=== PATIENT | female | born 1960 | race Caucasian/White ===

== ENCOUNTER 2023-09-16 11:27 | Emergency (ER) | payer MEDICARE, MEDICAID ==
[~2023-09-16] VITALS: Ht 152.4 cm; Wt 63.0 kg
[~2023-09-16 11:27] MED LIST: ALBU8HFA PO; ONDA4TAB12 PO
[2023-09-16 12:29] LABS: BASOPHILS % (AUTO) 0.5 % (0-1); EOSINOPHILS % (AUTO) 0 % (0-6); HEMATOCRIT 43.9 % (35.0-45.0); HEMOGLOBIN 14.5 g/dl (12.0-16.0); LYMPHOCYTES # (AUTO) 1.2 X10'3 (1.1-4.8); LYMPHOCYTES % (AUTO) 23.5 % (21-51); MEAN CORPUSCULAR HEMOGLOBIN 31.5 PG (27.0-31.0); MEAN CORPUSCULAR VOLUME 95.7 FL (78-98); MEAN PLATELET VOLUME 7.5 FL (7.4-10.4); MONOCYTES # (AUTO) 0.4 X10'3 (0-0.9); MONOCYTES % (AUTO) 8.8 % (2-12); NEUTROPHILS # (AUTO) 3.4 X10'3 (1.8-7.7); NEUTROPHILS % (AUTO) 67.2 % (42-75); PLATELET COUNT 281 X10'3 (140-440); RED BLOOD COUNT 4.59 X10'6 (4.20-5.60); RED CELL DISTRIBUTION WIDTH 13.5 % (11.5-14.5); WHITE BLOOD COUNT 5.1 X10'3 (4.5-11.0)
[2023-09-16] MEDS ORDERED: DONE-46 PO (12:35)
[2023-09-16] MEDS ORDERED: RISP0.5T65 PO (12:35)
[2023-09-16] MEDS ORDERED: DONE10TA44 PO (12:35)
[2023-09-16] MEDS ORDERED: FLUO40CA PO (12:35)
[2023-09-16] MEDS ORDERED: TRAZ-251 PO (12:36)
[2023-09-16 12:42] LABS: ALANINE AMINOTRANSFERASE 29 U/L (12-78); ALBUMIN 3.7 G/DL (3.4-5.0); ALKALINE PHOSPHATASE 109 IU/L (46-116); ANION GAP 10 (8-16); ASPARTATE AMINO TRANSFERASE 16 U/L (10-37); BILIRUBIN,TOTAL 0.3 MG/DL (0.1-1.0); BLOOD UREA NITROGEN 12 MG/DL (7-18); BUN/CREATININE RATIO 15.2 (10.0-20.0); CHLORIDE 105 MMOL/L (99-107); CREATININE 0.79 MG/DL (0.40-0.90); GLUCOSE 96 MG/DL (70-104); POTASSIUM 3.6 MMOL/L (3.5-5.1); SODIUM 141 MMOL/L (135-145); TOTAL CARBON DIOXIDE 25.6 MMOL/L (24-32); TOTAL PROTEIN 7.4 G/DL (6.4-8.2); eCRCL 54 ML/MIN; eGFR 74 ML/MIN
[2023-09-16 12:48] LABS: URINE HCG NEGATIVE (NEG)
[2023-09-16 12:49] LABS: BILIRUBIN,URINE NEGATIVE (Neg); CLARITY,URINE CLEAR (Clear); COLOR,URINE STRAW (Yellow); GLUCOSE, URINE NEGATIVE (Neg); KETONES,URINE NEGATIVE (Neg); LEUKOCYTE ESTERASE ,URINE NEGATIVE (Neg); NITRITES, URINE NEGATIVE (Neg); OCCULT BLOOD,URINE NEGATIVE (Neg); PH,URINE 5.5 (4.8-8.0); PROTEIN,URINE NEGATIVE (Neg); UROBILINOGEN,URINE 0.2 E.U/dL (0.2-1.0)
[2023-09-16 12:50] LABS: UA COLLECTION TYPE CLN CATCH MIDSTREAM
[2023-09-16 12:50] LABS: ETHANOL < 10 MG/DL (<10); THYROID STIMULATING HORMONE 0.73 ulU/ml (0.34-4.50)
[2023-09-16 12:59] LABS: URINE AMPHETAMINE SCREEN NEGATIVE (Neg); URINE BARBITUATE SCREEN NEGATIVE (Neg); URINE BENZODIAZEPINES SCREEN NEGATIVE (Neg); URINE CANNABINOID SCREEN NEGATIVE (Neg); URINE COCAINE SCREEN NEGATIVE (Neg); URINE METHADONE SCREEN NEGATIVE (Neg); URINE OPIATE SCREEN NEGATIVE (Neg); URINE PHENCYCLIDINE SCREEN NEGATIVE (Neg)
[2023-09-16] MEDS ORDERED: LORazepam 1 MG tablet PO ONE (13:20)
[2023-09-16] MEDS ORDERED: RISP1TAB13 PO (17:13)
[2023-09-16] MEDS ORDERED: BUSP5TAB3 PO (17:13)
[2023-09-16] MEDS ORDERED: RISP0.5T74 PO (17:13)
[2023-09-16] MEDS ORDERED: traZODone 50mg tablet PO PRN (17:54)
[2023-09-16] MEDS ORDERED: donepezil 5mg tablet PO SCH ×2 (21:00)
[2023-09-16] MEDS ORDERED: risperiDONE 0.5mg tablet PO SCH (21:00)
[2023-09-16] MEDS: busPIRone 5mg tablet PO SCH (21:39)
[2023-09-17] MEDS ORDERED: FLUoxetine 20mg capsule PO SCH (08:00)
[2023-09-17] MEDS ORDERED: risperiDONE 0.5mg tablet PO SCH (08:00)
[2023-09-17] MEDS: busPIRone 5mg tablet PO SCH ×2 (08:00→13:58)
[2023-09-17] MEDS ORDERED: acetaminophen 325mg tablet PO PRN (09:00)
[2023-09-17 16:55] VITALS: BP 111/46; PULSE 66; RESP 14; TEMP 98; O2SAT 95
== END 2023-09-17 17:00 ==
LOC: ER 11:27
DX: R45.851 Suicidal ideations (principal); Z20.822 Contact with and (suspected) exposure to COVID-19
CPT/HCPCS: 36415; 80053; 80305; 80320; 81003; 81025; 84443; 85025; 87811; 99285